=== PATIENT | female | born 1990 | race Hispanic/Latino ===

== ENCOUNTER 2018-07-20 18:26 | Emergency (ER) | payer SELFPAY ==
[2018-07-20] MEDS ORDERED: Metoclopramide HCl 10 MG/2 ML VIAL ONE (18:51)
[2018-07-20] MEDS ORDERED: Ketorolac Tromethamine 30 MG/ML VIAL ONE (18:51)
[2018-07-20] MEDS ORDERED: Sodium Chloride 0.9% 1,000 ML ONE (18:51)
[2018-07-20 19:07] LABS: Bilirubin Small (Negative); Blood, Urine Large (Negative); Clarity Bloody/Cloudy (Clear); Glucose, Urine (Dipstick) Negative (Negative); Leukocyte Negative (Negative); Nitrite Positive (Negative); Protein, Urine (Dipstick) 100 mg/dL (Neg-Trace); Specific Gravity, Urine 1.025 (1.005-1.030)
[2018-07-20 19:08] LABS: Pregnancy Test - Urine (BHCG) Negative (Negative); Pregu Control Background? CLEAR/WHITE (CLR/WHITE); Pregu Control Bar Appear? YES (CONTROL BAR); Specific Gravity 1.025 (1.002-1.036)
[2018-07-20 19:13] LABS: RBC/HPF GREATER THAN 50-TNTC HPF (0-3)
[2018-07-20 19:17] LABS: Bacteria/HPF Rare-Few HPF (None Seen); Squamous Epithelial 0-3 HPF (0-3)
--- NOTE | 2018-07-20 19:22 | CT ---
CT OF THE BRAIN WITHOUT CONTRAST: 07/20/18 COMPARISON: None. HISTORY: Headache. TECHNIQUE: Multiple contiguous axial images were obtained in a CT of the brain without contrast. FINDINGS: The brain is normal in morphology and attenuation without focal lesions or confluent areas of infarct ion. There is no evidence of hydrocephalus, intracranial hemorrhage or extra-axial fluid collection. The calvarium and overlying soft tissues are unremarkable. The visualized paranasal sinuses and masto id air cells are well aerated. IMPRESSION: No evidence of acute intracranial abnormality. POS: C
== END 2018-07-20 20:10 | disposition home or self-care (01) ==
LOC: MADERS 18:26
DX: R51 Headache (principal)
CPT/HCPCS: 70450; 81003; 81015; 81025; 87086; 96361; 96374; 96375; J1885; J2765; J7050